=== PATIENT | female | born 1990 | race Caucasian/White ===

== ENCOUNTER 2018-06-27 14:05 | Inpatient (IN) | payer MEDICAID ==
[~2018-06-27] VITALS: Ht 152.4 cm; Wt 87.1 kg
[2018-06-27 14:29] VITALS: BP 134/75
[2018-06-27] MEDS ORDERED: LORazepam 2 MG TABLET PO PRN (14:45)
[2018-06-27] MEDS ORDERED: HALOPERIDOL 5 MG TABLET PO PRN (14:45)
[2018-06-27] MEDS ORDERED: PNEUMOCOCCAL VACCINE POLYVALENT 0.5 ML VIAL [PPSV23] IM ONE (15:00)
[2018-06-27 16:15] VITALS: BP 118/69
[2018-06-27] MEDS ORDERED: IBUPROFEN 400 MG TABLET PO PRN (18:15)
[2018-06-27] MEDS ORDERED: LOPERAMIDE HCL 2 MG CAPSULE PO PRN (18:15)
[2018-06-27] MEDS ORDERED: MAGNESIUM HYDROXIDE SUSPENSION 30 ML UDCUP PO PRN (18:15)
[2018-06-27] MEDS ORDERED: ACETAMINOPHEN 325 MG TABLET PO PRN (18:15)
[2018-06-27] MEDS ORDERED: DOCUSATE SODIUM 100 MG CAPSULE PO PRN (18:15)
[2018-06-27] MEDS ORDERED: MAG HYDROX/AL HYDROX/SIMETH ES 30 ML SUSPENSION UDCUP PO PRN (18:15)
[2018-06-27] MEDS ORDERED: CloNIDine HCL 0.1 MG TABLET PO PRN (18:15)
[2018-06-27] MEDS ORDERED: PETROLATUM,WHITE 71 GM JELLY TP PRN (18:15)
[2018-06-27] MEDS ORDERED: GuaiFENesin/D-METHORPHAN [SUGAR-FREE] 200-20MG/10 ML SYRUP UDCUP PO PRN (18:15)
[2018-06-27] MEDS ORDERED: ALBUTEROL SULFATE HFA 90 MCG/PUFF 8 GM INHALER IH PRN (18:15)
[2018-06-27] MEDS ORDERED: ZOLPIDEM TARTRATE 10 MG TABLET PO PRN (21:45)
[2018-06-28 07:12] VITALS: BP 103/64
[2018-06-28 08:36] LABS: BASOPHILS % (AUTO) 0.6 % (0.0-2.0); EOSINOPHILS % (AUTO) 2.8 % (1.0-6.0); HEMATOCRIT 38.5 % (36-46); HEMOGLOBIN 12.7 g/dL (12.0-16.0); LYMPHOCYTES # (AUTO) 1.7 K/uL (1.0-4.8); LYMPHOCYTES % (AUTO) 36.8 % (22.0-44.0); MEAN CORPUSCULAR HEMOGLOBIN 28.4 pg (26.0-34.0); MEAN CORPUSCULAR VOLUME 86 fL (80-100); MONOCYTES # (AUTO) 0.7 K/uL (0.1-1.0); MONOCYTES % (AUTO) 14.6 % (2.0-9.0); NEUTROPHILS # (AUTO) 2.1 K/uL (1.8-7.7); NEUTROPHILS % (AUTO) 45.2 % (40.0-70.0); PLATELET COUNT (AUTO) 293 K/uL (150-450); RED BLOOD CELL COUNT(AUTO) 4.47 MIL/uL (4.00-5.20); RED CELL DISTRIBUTION WIDTH 13.7 % (11.5-14.5)
[2018-06-28 09:00] VITALS: BP 113/65
[2018-06-28 09:09] LABS: ALANINE AMINOTRANSFERASE 32 U/L (12-78); ALBUMIN 3.5 g/dL (3.4-5.0); ALKALINE PHOSPHATASE 83 U/L (46-116); ANION GAP 6 mmol/L (8-16); ASPARTATE AMINOTRANSFERASE 25 U/L (15-37); BILIRUBIN,TOTAL 0.6 mg/dL (0.1-1.0); CALCIUM, TOTAL 9.6 mg/dL (8.8-10.5); CARBON DIOXIDE 30 mmol/L (22-29); CHLORIDE 103 mmol/L (98-107); CHOL/HDL RATIO 2.5 (3.9-5.7); CHOLESTEROL 123 mg/dL (131-200); CREATININE 0.58 mg/dL (0.60-1.30); FREE T4 (FREE THYROXINE) 2.04 ng/dL (0.76-1.46); GLOMERULAR FILTR. RATE CALC > 60 mL/min (>60); GLUCOSE,RANDOM 84 mg/dL (70-110); HCG,QUANTITATIVE < 1 mIU/mL (0-6); HDL CHOLESTEROL 50 mg/dL (40-60); LDL CHOL (CALC.) 67 mg/dL (0-130); POTASSIUM 4.7 mmol/L (3.5-5.1); SODIUM SERUM 139 mmol/L (136-145); TRIGLYCERIDES 31 mg/dL (15-150); UREA NITROGEN, BLOOD 15 mg/dL (7-18)
[2018-06-28] MEDS: ONDANSETRON HCL 4 MG TABLET PO PRN (12:31)
[2018-06-28] MEDS: ESCITALOPRAM OXALATE 10 MG TABLET PO SCH (13:32)
[2018-06-28 16:14] VITALS: BP 122/70
[2018-06-29 06:16] VITALS: BP 120/81
[2018-06-29 08:30] VITALS: BP 120/64
[2018-06-29] MEDS: ESCITALOPRAM OXALATE 10 MG TABLET PO SCH (08:57)
[2018-06-29] MEDS: ONDANSETRON HCL 4 MG TABLET PO PRN ×2 (09:03→18:15)
[2018-06-29 16:16] VITALS: BP 116/71
[2018-06-29] MEDS: METHIMAZOLE 5 MG TABLET PO SCH (17:11)
[2018-06-30 00:26] VITALS: BP 100/69
[2018-06-30 08:13] VITALS: BP 123/78
[2018-06-30] MEDS: ESCITALOPRAM OXALATE 10 MG TABLET PO SCH (08:14)
[2018-06-30] MEDS: METHIMAZOLE 5 MG TABLET PO SCH (08:14)
[2018-06-30] MEDS: ONDANSETRON HCL 4 MG TABLET PO PRN (08:52)
[2018-06-30] MEDS ORDERED: ESCI10TA PO (10:53)
[2018-06-30] MEDS ORDERED: METHI5 PO (10:53)
[2018-06-30] MEDS ORDERED: ESCI10TA54 PO (11:09)
== END 2018-06-30 11:59 | disposition home or self-care (01) | DRG 751 ==
LOC: B2S 14:38
PROC: 3E0234Z Introduction of Serum, Toxoid and Vaccine into Muscle, Percutaneous Approach (ICD-10-PCS; principal; 2018-06-27)
PROC: 3E02340 Introduction of Influenza Vaccine into Muscle, Percutaneous Approach (ICD-10-PCS; 2018-06-27)
DX: F33.2 Major depressive disorder, recurrent severe without psychotic features (principal); R45.851 Suicidal ideations; E05.90 Thyrotoxicosis, unspecified without thyrotoxic crisis or storm; R01.1 Cardiac murmur, unspecified; K59.00 Constipation, unspecified; Z79.899 Other long term (current) drug therapy; Z91.5 Personal history of self-harm; Z23 Encounter for immunization
CPT/HCPCS: 83036; 84436; 84439; 84443; 90686; 90732; Q0162